=== PATIENT | female | born 1955 | race Caucasian/White ===

== ENCOUNTER 2017-04-26 16:32 | Emergency (ER) | END 2017-04-26 17:00 | disposition home or self-care (01) ==

== ENCOUNTER 2017-05-22 15:23 | Emergency (ER) | END 2017-05-22 19:23 | disposition home or self-care (01) ==

== ENCOUNTER 2017-12-09 12:25 | Day surgery (SDC) | END 2017-12-09 16:21 | disposition home or self-care (01) ==